=== PATIENT | male | born 1960 | race Caucasian/White ===

== ENCOUNTER 2017-03-20 20:58 | Inpatient (IN) | payer MEDICAID ==
[~2017-03-20] VITALS: Ht 162.6 cm; Wt 97.1 kg
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
--- NOTE | 2017-03-20 22:03 | NUR ---
MEDICATED PER ORDER; SEE EMAR.
--- NOTE | 2017-03-20 23:14 | NUR ---
PT RESTING IN GURNEY WITH NO DISTRESS NOTED, RESP EVEN AND UNLABORED WITH OFFICER AT THE BEDSIDE.
--- NOTE | 2017-03-20 23:59 | NUR ---
PER DOUGLAS DING TO REMOVE C-COLLAR AT THIS TIME.
--- NOTE | 2017-03-21 00:50 | NUR ---
REPORT GIVEN TO BETI BOB FOR CONTINUATION OF CARE.
--- NOTE | 2017-03-21 00:50 | NUR ---
MEDICATED PER ORDER; SEE EMAR.
--- NOTE | 2017-03-21 01:23 | NUR ---
RESIDENT AT BEDSIDE PERFORM H&P. PT AWAKE ALERT, RESP E/U, STS NO PAIN AT THIS TIME
[2017-03-21 01:33] LABS: BASOPHIL % 0.3 % (0-2); PLATELET COUNT 231 x10^3mcL (130-400)
[2017-03-21 01:48] LABS: ALKALINE PHOSPHATASE 51 U/L (46-116); ALT/SGPT 37 U/L (16-63); AMYLASE 78 U/L (25-115); AST/SGOT 32 U/L (15-37); BILIRUBIN TOTAL 0.27 mg/dL (0.20-1.00); CALCIUM 8.3 mg/dL (8.5-10.1); CARBON DIOXIDE 26.2 mmol/L (21-32); CHLORIDE SERUM 105 mmol/L (98-107); CHOLESTEROL 185 mg/dL (<200); CREATININE SERUM 0.8 mg/dL (0.7-1.3); GFR1 > 60 mL/min; GLUCOSE SERUM 106 mg/dL (74-106); LIPASE 207 IU/L (73-393); MAGNESIUM 1.7 mg/dL (1.8-2.4); PHOSPHOROUS 2.5 mg/dL (2.5-4.9); POTASSIUM SERUM 3.9 mmol/L (3.5-5.1); SODIUM SERUM 137 mmol/L (136-145); TOTAL PROTEIN, SERUM 6.9 g/dL (6.4-8.2); TRIGLYCERIDES 48 mg/dL (<150)
[2017-03-21 01:49] LABS: ALBUMIN 3.3 g/dL (3.4-5.0); CHOLESTEROL/HDL RATIO 2.6; HDL CHOLESTEROL 70 mg/dL (40-60)
--- NOTE | 2017-03-21 01:50 | NUR ---
FLUIDS AND MEDS ADMIN PER MD ORDER; SEE EMAR. CALL LIGHT PLACED WITHIN REACH
[2017-03-21 02:29] LABS: FREE T4 1.01 ng/dL (0.76-1.46); FREE THYROXINE INDEX 2.8 ug/dL (1.4-4.5); T4(THYROXINE) 7.9 ug/dL (4.7-13.3)
--- NOTE | 2017-03-21 03:12 | NUR ---
REPORT GIVEN TO THERESA TO ASSUME CARE OF PT
[2017-03-21 03:29] LABS: T3 TOTAL 0.92 ng/mL
[2017-03-21 03:37] VITALS: BP 130/83
--- NOTE | 2017-03-21 03:50 | NUR ---
PATIENT ARRIVED TO UNIT VIA [facility] FROM ED ACCOMPANIED BY ED NURSES. ALL PREVIOUS MEDICAL HX OBTAINED DIRECTLY FROM PATIENT. IV SITE TO LAC AND RESTARTED IVF. PATIENT C/O PAIN TO BACK; SHOULDER, AND NECK 04/28. WILL MEDICATE NECESSARY. ALL QUESTIONS ANSWERED AND PATIENT ORIENTATED TO EQUIPMENT IN ROOM.
[2017-03-21 04:28] LABS: microscopic required? NO
[2017-03-21 04:39] LABS: UA SPECIFIC GRAVITY 1.015 (1.005-1.035); urine erythrocyte NEGATIVE (NEGATIVE)
[2017-03-21 04:47] LABS: AMPHETAMINE QUAL UR NONE DETECTED (NEG <=1000)
[2017-03-21 05:24] VITALS: BP 130/83
--- NOTE | 2017-03-21 07:31 | NUR ---
PATIENT QUIETLY RESTING IN BED. ABD BINDER AND K-PAD IN PLACE. REPORT GIVEN TO SUNITA URRUTIA
--- NOTE | 2017-03-21 07:45 | NUR ---
RECEIVED THE PATIENT AWAKE AND ORIENTED TO PERSON, PLACE AND TIME. DENIED SHORTNESS OF BREATH OR NAUSEA/VOMITING. PATIENT STATED HAVING MILD ACHING TO BACK WHILE RESTING IN BED BUT THE PAIN INCREASED WITH MOVEMENT. BINDER IN PLACE TO AROUND BACK. CONTINUE TO MONITOR AND MEDICATE FOR PAIN PRN. IVF NS VIA H/L TO LAC. CALL LIGHT WITHIN REACH. SIDE RAILS UP X2.
--- NOTE | 2017-03-21 08:10 | NUR ---
DR. BLACKMON AND THE TEAM WERE MAKING ROUND TO SEE THE PATIENT. THE CARE PLAN WAS EXPLAINED TO THE PATIENT IN [place] VIA HEALTH AND SAFETY CONSULTANT-MEDICAL STUDENT, AND THE PATIENT AGREED WITH THE PLAN.
[2017-03-21 09:56] VITALS: BP 146/90
[2017-03-21 11:49] VITALS: Ht 162.6 cm; Wt 97.1 kg
[2017-03-21 13:01] VITALS: BP 116/73
[2017-03-21 17:57] VITALS: BP 122/79
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
--- NOTE | 2017-03-21 18:53 | NUR ---
THE PATIENT STATED THE BACK PAIN WAS BETTER WHILE HE WAS LYING FLAT IN BED, AND THE PAIN GETS WORSE WHEN HE SITS UP. BINDER WRAPPED AROUND THE BACK AND K-PAD IN PLACE.
--- NOTE | 2017-03-21 19:00 | NUR ---
REC'D PT RESTING IN BED. PT IS AAOX4. NO DISTRESS NOTED. LUNG SOUNDS CLEAR. NO SOB NOTED. PT C/O 6/10 BACK PAIN AND TOLERABLE AT THIS TIME. K-PAD IN PLACE. ABD BINDER IN PLACE. ECCHYMOSIS NOTED TO FACE AND RIGHT SHOULDER. IVF INFUSING TO LAC PER DOCTOR'S ORDER. INTACT AND PATENT. SAFETY AND COMFORT MEASURES IN PLACE. BED IN LOWEST POSITION. CALL LIGHT WITHIN REACH. WILL CONTINUE TO MONITOR.
[2017-03-21 20:54] VITALS: BP 112/76
--- NOTE | 2017-03-21 23:43 | NUR ---
PT C/O 06/28 BACK PAIN. MEDICATED WITH MORPHINE 2MG IV (SEE MAR).
--- NOTE | 2017-03-22 05:09 | NUR ---
PT RESTING IN BED. NO SIGNIFICANT CHANGES DURING SHIFT. IVF INFUSING WELL. CALL LIGHT WITHIN REACH. WILL CONTINUE TO MONITOR.
[2017-03-22 06:06] LABS: CALCIUM 8.2 mg/dL (8.5-10.1); CARBON DIOXIDE 30.5 mmol/L (21-32); CHLORIDE SERUM 105 mmol/L (98-107); CREATININE SERUM 0.7 mg/dL (0.7-1.3); GFR1 > 60 mL/min; GLUCOSE SERUM 93 mg/dL (74-106); MAGNESIUM 1.9 mg/dL (1.8-2.4); POTASSIUM SERUM 3.7 mmol/L (3.5-5.1); SODIUM SERUM 139 mmol/L (136-145)
[2017-03-22 06:13] VITALS: BP 136/77
--- NOTE | 2017-03-22 07:35 | NUR ---
RESUME CARE: PATIENT ORIENTED TO PERSON, PLACE AND TIME. DENIED SHORTNESS OF BREATH OR NAUSEA/VOMITING. PATIENT STATED HAVING PAIN TO BACK BUT TOLERABLE WHILE RESTING IN BED. PATIENT STATED THE PAIN GETS WORSE WITH SITTING UP OR AMBULATING. BINDER IN PLACE; K-PAD UNDER THE BACK. IVF NS VIA H/L TO LAC. ANOTHER H/L TO LEFT HAND. CALL LIGHT WITHIN REACH. SIDE RAILS UP X2.
--- NOTE | 2017-03-22 08:15 | NUR ---
DR. GRIGSBY AND THE TEAM WERE MAKING ROUND TO SEE THE PATIENT. THE CARE PLAN WAS EXPLAINED TO THE PATIENT IN SPLANISH VIA ONE OF THE 1ST YEAR RESIDENT. ALL QUESTIONS WERE ANSWERED AND THE PATIENT VERBALIZED UNDERSTANDING.
[2017-03-22 10:30] VITALS: BP 124/83; BP 124/839
[2017-03-22 18:48] VITALS: BP 128/94
--- NOTE | 2017-03-22 18:58 | NUR ---
THE PATIENT WAS SLEEPING IN BED AFTER HAVING DINNER AND MOTRIN 800 MG PO FOR BACK PAIN AT 1742. PATIENT STATED THE PAIN WAS TOLERABLE WHILE LYING IN BED RESTING AND SLEEPING. THE PAIN GOT WORSE WHEN SITTING UP OR WALKING. BINDER AND K-PAD WERE IN PLACE.
[2017-03-22 21:29] VITALS: BP 129/81
--- NOTE | 2017-03-22 21:51 | NUR ---
Awake and verbally responsive. No resp.distress noted. Medicated with norco as ordered for c/o back pain. K-pad in place. Abd'kris.stoney intact. SCD. Will cont.to monitor. Call light within reach.
--- NOTE | 2017-03-23 04:12 | NUR ---
On and off back pain, medicated as ordered with pascale leonard with help. Using k-pad. Encouraged using I.S. while awake. Afebrile. In no apparent distress.
[2017-03-23 06:09] LABS: BASOPHIL % 0.3 % (0-2); PLATELET COUNT 214 x10^3mcL (130-400); RED CELL DISTRIBUTION WIDTH 14.3 % (11.5-14.5)
[2017-03-23 06:35] VITALS: BP 136/91
[2017-03-23 06:42] LABS: CALCIUM 8.4 mg/dL (8.5-10.1); CARBON DIOXIDE 27.1 mmol/L (21-32); CHLORIDE SERUM 102 mmol/L (98-107); CREATININE SERUM 0.7 mg/dL (0.7-1.3); GFR1 > 60 mL/min; GLUCOSE SERUM 86 mg/dL (74-106); MAGNESIUM 1.8 mg/dL (1.8-2.4); PHOSPHOROUS 3.1 mg/dL (2.5-4.9); SODIUM SERUM 138 mmol/L (136-145)
--- NOTE | 2017-03-23 08:00 | NUR ---
ALERT AND ORIENTED. HOB SLIGHTLY ELEVATED. LYING ON KPAD FOR COMFORT TO T5-T7. BREATHING FREELY ON RA. ADMITS TO PAIN 7/10 ACHE IN BACK. RECEIVED MOTRIN AND NORCO DURING CEREAL MILLER. WILL SPEAK TO RESIDENTS RE: PAIN MANAGEMENT. NS INFUSING 80 CC HOUR. NO TELE. URINAL AT BEDSIDE. CALL LIGHT WITHIN RRACH. ABRASIONS TO FACE. RECEIVES ANTIBIOTIC CREAM APPLIED.
[2017-03-23 10:09] VITALS: BP 131/89
[2017-03-23 13:27] VITALS: BP 135/89
--- NOTE | 2017-03-23 13:49 | NUR ---
CHAR FROM P.T. HERE TO SEE PT.
--- NOTE | 2017-03-23 15:25 | NUR ---
PHYSICAL THERAPY DAILY NOTES CO-SIGN All documentation done by the Back End Engineer for 03/23/17 has been reviewed. I agree with the documentation. Reviewed/Co-Signed by: Ajit Floyd PT Documentation Done by: CHAR GUTHRIE OFFENDER JOB RETENTION SPECIALIST PT PROGRESSING STEADILY TOWARDS REHAB GOALS SET ABLE TO FOLLOW COMMANDS AND CUES FOR SAFETY WITH MOBILITY
[2017-03-23 17:11] VITALS: BP 160/91
--- NOTE | 2017-03-23 17:44 | NUR ---
ALERT AND ORIENTED. LYING ON KPAD FOR UPPER BACK PAIN. RECEIVES FLEXERIL,MORPHINE AND NORCO FOR PAIN. SEEN BY P.T. TODAY. WAS ABLE TO AMBULATE 30 FEET. NS INFUSING 80 CC HOUR. NO TELE. CALL LIGHT WITHIN REACH. USES URINAL AT BEDSIDE.
--- NOTE | 2017-03-23 20:30 | NUR ---
PT RECIEVED AAO REG RESP NO SOB,ABDO SOFT OBESE WITH ACTIVE BOWEL SOUNDS,PT HAD ABDO BINDER AND ALSO KPAD ORDER,IV INFUSING WELL WITH THE SITE PATENT AND INTACT,KEPT CLEAN AND DRY TO TOUCH,PT WITH DRY ABRASIONS TO THE RT SHOULDER AND THE FACE,CALL LIGHT MADE CLOSE TO THE PATIEMNT AND WILL CONTINUE TO MONITOR.
[2017-03-23 21:50] VITALS: BP 156/101
[2017-03-24 05:49] VITALS: BP 129/80
[2017-03-24 05:57] LABS: BASOPHIL % 0.3 % (0-2); PLATELET COUNT 227 x10^3mcL (130-400); RED CELL DISTRIBUTION WIDTH 13.9 % (11.5-14.5)
[2017-03-24 06:23] LABS: CALCIUM 8.7 mg/dL (8.5-10.1); CARBON DIOXIDE 28.9 mmol/L (21-32); CHLORIDE SERUM 100 mmol/L (98-107); CREATININE SERUM 0.7 mg/dL (0.7-1.3); GFR1 > 60 mL/min; GLUCOSE SERUM 89 mg/dL (74-106); MAGNESIUM 1.9 mg/dL (1.8-2.4); PHOSPHOROUS 3.8 mg/dL (2.5-4.9); POTASSIUM SERUM 4.7 mmol/L (3.5-5.1); SODIUM SERUM 135 mmol/L (136-145)
--- NOTE | 2017-03-24 06:38 | NUR ---
PT HAD A RESTING NIGHT NO CHAGE IN CONDITION AT THIS TIME AND WILL CONTINUE TO MONITOR.
--- NOTE | 2017-03-24 08:20 | NUR ---
ALERT AND ORIENTED. GOT UP TO CHAIR FOR BREAKFAST. BACK PAIN 5/10 ACHE. HAS PRN PAIN MEDS ORDERED. WILL MEDICATE. ON RA. 95% AT. ENCOURAGED TO USE I.S.. NS INFUISNG 80 CC HOUR. KPAD IN USE. ABLE TO MOVE AND REPOSITION SELF IN BED. USES URINAL. CALL LIGHT WITHIN REACH.
[2017-03-24 10:09] VITALS: BP 133/89
[2017-03-24] MEDS ORDERED: OXYC PO (11:10)
[2017-03-24] MEDS ORDERED: COL100 PO (11:12)
[2017-03-24] MEDS ORDERED: NEOUD TOP (11:13)
[2017-03-24] MEDS ORDERED: MOT800 PO (11:14)
[2017-03-24] MEDS ORDERED: MIANS (11:25)
[2017-03-24] MEDS ORDERED: OSCD PO (11:27)
--- NOTE | 2017-03-24 17:10 | NUR ---
PT TO BE DC'D. CLEAR LINK [employer] HUMAN SERVICES ASSISTANTS JESSICA. [employer] ASSISTANTS NUMBER ON SIGNATURE PAGE OF DC INSTRUCTIONS.ALL DC INSTRUCTIONS SIGNED BY PT. PT VACA BACK BRACE AND WALKER. NO TELE. F/U EH W/ DR. CRAMER GIVEN FOR 03/28/17. PRESCRIPTIONS GIVEN.
--- NOTE | 2017-03-24 19:10 | NUR ---
PT FRIENDS CAME TO TAKE HIM HOME. LEFT WITH BACK BRACE AND WALKER. IV DC'D. NO TELE. PRESCRPTIONS GIVEN AND F/U EH W/ DR. CRAMER.
== END 2017-03-24 19:15 | disposition home or self-care (01) | DRG 347 ==
LOC: ED 20:58 → MU 03-21 02:53 → DU 03-21 02:53 → MU 03-21 06:54
PROVIDERS: ADMIT Family Medicine
DX: S22.051A Stable burst fracture of T5-T6 vertebra, initial encounter for closed fracture (principal); S09.90XA Unspecified injury of head, initial encounter; E44.0 Moderate protein-calorie malnutrition; E87.1 Hypo-osmolality and hyponatremia; E83.42 Hypomagnesemia; S22.061A Stable burst fracture of T7-T8 vertebra, initial encounter for closed fracture; J98.11 Atelectasis; E78.5 Hyperlipidemia, unspecified; I10 Essential (primary) hypertension; W17.89XA Other fall from one level to another, initial encounter; Y93.55 Activity, bike riding; Y92.89 Other specified places as the place of occurrence of the external cause
CPT/HCPCS: 83880; 84439; 90715; 94150; 97110-GP; 97116-GP; 97530-GP; J1100; J1885; J2270; J2405; J7030; Q0092; Q0162